=== PATIENT | male | born 2000 | race Caucasian/White ===

== ENCOUNTER 2023-06-01 11:13 | Inpatient (IN) | payer OTHER ==
[2023-06-01 11:21] VITALS: BMI 23.7
[2023-06-01] MEDS ORDERED: LACTATED RINGERS SOLUTION 1000 ML INFUS.BAG IV ONE (12:05)
[2023-06-01] MEDS ORDERED: HALOPERIDOL LACTATE 5 MG/ML IM ONE ×3 (12:06→12:46)
[2023-06-01] MEDS ORDERED: FAMOTIDINE 20 MG/50 ML IVPB 20 MG/50 ML MG IVPB ONE ×2 (12:06→12:46)
[2023-06-01 13:20] LABS: VENOUS BASE EXCESS 10.5 mmol/L (-2-2); VENOUS O2 SATURATION 33.5 % (70-80); VENOUS PCO2 46.5 mmHg (38-52); VENOUS PH 7.499 (7.310-7.410)
[2023-06-01 13:22] LABS: BASO % 0.1 % (0-2.0); EOS % 0.1 % (0-4.5); HEMATOCRIT 44.2 % (35.4-49); HEMOGLOBIN 15.8 GM/dL (11.7-16.9); LYMPH % 19.8 % (8-40); MCH 29.5 pg (25.7-33.7); MCHC 35.8 g/dl (32.0-35.9); MEAN CELL VOLUME 82.3 fl (80-96); MEAN PLT VOLUME 7.9 fl (7.5-11.1); MONO % 11.5 % (3.8-10.2); NEUT % 68.5 % (42.8-82.8); PLATELET COUNT 361 10^3/uL (134-434); RBC 5.37 M/mm3 (4.00-5.60); RDW 12.6 % (11.9-15.9); WHITE BLOOD COUNT 7.7 K/mm3 (4.0-10.0)
[2023-06-01 13:44] LABS: CHLORIDE 88 mmol/L (98-107); SODIUM 136 mmol/L (136-145)
[2023-06-01 13:47] LABS: ALBUMIN 4.9 g/dl (3.4-5.0); BLOOD UREA NITROGEN 8.7 mg/dL (7-18); CALCIUM 9.9 mg/dL (8.5-10.1); GLUCOSE,RANDOM 105 mg/dL (74-106); LIPASE 52 U/L (73-393); MAGNESIUM 3.1 mg/dL (1.8-2.4)
[2023-06-01 13:50] LABS: CREATININE 0.8 mg/dL (0.55-1.3); SGOT/AST 19 U/L (15-37); SGPT/ALT 25 U/L (13-61)
[2023-06-01 13:52] LABS: BILIRUBIN,TOTAL 2.1 mg/dL (0.2-1); TOT PROT 8.4 g/dl (6.4-8.2)
[2023-06-01 13:53] LABS: ALK PHOS 66 U/L (45-117); ANION GAP 13 MMOL/L (8-16); CO2 36 mmol/L (21-32); POTASSIUM 2.9 mmol/L (3.5-5.1)
[2023-06-01] MEDS ORDERED: KCL 10 MEQ IVPB 10 MEQ/100 ML INFUS.BAG IVPB ONE ×2 (14:14→15:49)
[2023-06-01] MEDS: KCL 10 MEQ IVPB 10 MEQ/100 ML INFUS.BAG IVPB SCH ×3 (14:22→23:42)
[2023-06-01] MEDS ORDERED: ONDANSETRON 4 MG/2 ML VIAL IVPUSH PRN (14:38)
[2023-06-01 17:07] LABS: EPI CELLS 23 /uL (0-25.1); HYALINE CASTS 1 /uL (0-3.1); URINE APPEARANCE CLEAR; URINE BACTERIA 4 /uL (0-1359); URINE BILIRUBIN NEGATIVE (NEGATIVE); URINE COLOR YELLOW; URINE GLUCOSE (UA) NEGATIVE (NEGATIVE); URINE KETONE 3+ (NEGATIVE); URINE LEUK ESTERASE NEGATIVE (NEGATIVE); URINE NITRITE NEGATIVE (NEGATIVE); URINE PROTEIN NEGATIVE (NEGATIVE); URINE RBC 100 /uL (0-23.9); URINE WBC 20 /uL (0-25.8)
[2023-06-01] MEDS: DEXTROSE 5%-LACTATED RINGERS 1,000 ML IV SCH (17:11)
[2023-06-01 18:00] LABS: OPIATES, URI NEGATIVE (NEGATIVE); PHENCYCLIDINE,URINE NEGATIVE (NEGATIVE)
[2023-06-01 18:01] LABS: URINE AMPHETAMINES NEGATIVE (NEGATIVE); URINE BENZODIAZEPINES NEGATIVE (NEGATIVE)
[2023-06-01 18:05] LABS: COCAINE, UR NEGATIVE (NEGATIVE); METHADONE, UR NEGATIVE (NEGATIVE); URINE BARBITURATES NEGATIVE (NEGATIVE)
[2023-06-02] MEDS: KCL 10 MEQ IVPB 10 MEQ/100 ML INFUS.BAG IVPB SCH ×7 (00:35→16:49)
[2023-06-02] MEDS ORDERED: TRIMETHOBENZAMIDE HCL 200MG/2ML INJ IM PRN (09:10)
[2023-06-02] MEDS: DEXTROSE 5%-LACTATED RINGERS 1,000 ML IV SCH (09:39)
[2023-06-02] MEDS ORDERED: SODIUM CHLORIDE 1,000 ML IV SCH (11:00)
[2023-06-02 11:01] LABS: BASO % 0.4 % (0-2.0); EOS % 0.9 % (0-4.5); HEMATOCRIT 40.6 % (35.4-49); HEMOGLOBIN 14.1 GM/dL (11.7-16.9); LYMPH % 30.9 % (8-40); MCH 28.9 pg (25.7-33.7); MCHC 34.7 g/dl (32.0-35.9); MEAN CELL VOLUME 83.1 fl (80-96); MEAN PLT VOLUME 8.1 fl (7.5-11.1); MONO % 9.8 % (3.8-10.2); PLATELET COUNT 300 10^3/uL (134-434); RBC 4.88 M/mm3 (4.00-5.60); RDW 12.4 % (11.9-15.9); WHITE BLOOD COUNT 6.3 K/mm3 (4.0-10.0)
[2023-06-02 11:24] LABS: CHLORIDE 94 mmol/L (98-107); SODIUM 138 mmol/L (136-145)
[2023-06-02 11:29] LABS: CALCIUM 8.8 mg/dL (8.5-10.1); GLUCOSE,RANDOM 107 mg/dL (74-106)
[2023-06-02 11:30] LABS: BLOOD UREA NITROGEN 7.3 mg/dL (7-18); CO2 34 mmol/L (21-32)
[2023-06-02 11:32] LABS: CREATININE 0.6 mg/dL (0.55-1.3)
[2023-06-02 11:45] LABS: ALBUMIN 4.1 g/dl (3.4-5.0)
[2023-06-02 11:47] LABS: BILIRUBIN,DIRECT 0.4 mg/dL (0.0-0.2)
[2023-06-02 11:49] LABS: ANION GAP 10 MMOL/L (8-16); POTASSIUM 2.7 mmol/L (3.5-5.1)
[2023-06-02 11:50] LABS: BILIRUBIN,TOTAL 1.7 mg/dL (0.2-1); TOT PROT 6.7 g/dl (6.4-8.2)
[2023-06-02] MEDS: POTASSIUM CHLORIDE ORAL LIQUID 20 MEQ/15 ML PO ONE ×2 (13:45→13:50)
[2023-06-02] MEDS ORDERED: SODIUM CHLORIDE 1,000 ML with POTASSIUM CHLORIDE 40 MEQ IV SCH ×2 (14:24→14:30)
[2023-06-02] MEDS ORDERED: POTASSIUM CHLORIDE ORAL LIQUID 20 MEQ/15 ML PO ONE (16:41)
[2023-06-02] MEDS: ONDANSETRON 4 MG/2 ML VIAL IVPB PRN (17:04)
[2023-06-02] MEDS: POTASSIUM CHLORIDE TABS 20 MEQ TABLET.ER (FP) PO SCH (18:18)
[2023-06-03] MEDS: ONDANSETRON 4 MG/2 ML VIAL IVPB PRN ×2 (00:58→07:53)
[2023-06-03] MEDS ORDERED: PYRIDOXINE HCL (B-6) 50 MG TABLET (FP) PO SCH (10:00)
[2023-06-03] MEDS: POTASSIUM CHLORIDE TABS 20 MEQ TABLET.ER (FP) PO SCH (10:01)
[2023-06-03 13:21] LABS: BASO % 0.2 % (0-2.0); EOS % 0.7 % (0-4.5); HEMATOCRIT 42.9 % (35.4-49); HEMOGLOBIN 14.5 GM/dL (11.7-16.9); LYMPH % 27.5 % (8-40); MCH 28.7 pg (25.7-33.7); MCHC 33.8 g/dl (32.0-35.9); MEAN CELL VOLUME 84.8 fl (80-96); MEAN PLT VOLUME 8.5 fl (7.5-11.1); MONO % 6.5 % (3.8-10.2); NEUT % 65.1 % (42.8-82.8); PLATELET COUNT 327 10^3/uL (134-434); RBC 5.06 M/mm3 (4.00-5.60); RDW 12.3 % (11.9-15.9); WHITE BLOOD COUNT 8.6 K/mm3 (4.0-10.0)
[2023-06-03 13:40] LABS: POTASSIUM 3.1 mmol/L (3.5-5.1)
[2023-06-03 13:50] LABS: CALCIUM 9.3 mg/dL (8.5-10.1)
[2023-06-03 13:51] LABS: ALBUMIN 4.2 g/dl (3.4-5.0); BLOOD UREA NITROGEN 6.5 mg/dL (7-18)
[2023-06-03 13:52] LABS: MAGNESIUM 2.6 mg/dL (1.8-2.4)
[2023-06-03 13:53] LABS: BILIRUBIN,TOTAL 1.6 mg/dL (0.2-1); TOT PROT 7.2 g/dl (6.4-8.2)
[2023-06-03 13:54] LABS: CREATININE 0.6 mg/dL (0.55-1.3); PHOSPHOROUS 3.1 mg/dL (2.5-4.9)
[2023-06-03] MEDS ORDERED: POTASSIUM CHLORIDE ORAL LIQUID 20 MEQ/15 ML PO ONE (13:54)
[2023-06-03 15:07] VITALS: BP 140/89; PULSE 93; TEMP 98.7
[2023-06-03 15:38] VITALS: RESP 20
[2023-06-03] MEDS ORDERED: MELATONIN 5 MG TABLETS PO PRN (19:08)
== END 2023-06-03 19:41 | disposition home or self-care (01) | DRG 392 ==
LOC: EDBD 11:13 → JER 11:13 → JERBED 14:24 → OBSVTOIN 14:36 → J6S 20:16
PROVIDERS: ADMIT Internal Medicine; ATTEND Internal Medicine
DX: R11.2 Nausea with vomiting, unspecified (principal); E87.3 Alkalosis; E87.6 Hypokalemia; F12.10 Cannabis abuse, uncomplicated; E80.6 Other disorders of bilirubin metabolism; E87.8 Other disorders of electrolyte and fluid balance, not elsewhere classified; F10.10 Alcohol abuse, uncomplicated
CPT/HCPCS: 36415; 71046-TC-FY; 74018-TC-FY; 76705-TC; 80048; 80053; 80076; 80307; 81003; 82803; 83690; 83735; 84100; 85025; 87086; 93005; 93010; 99285-25; G0378